=== PATIENT | female | born 1975 | race African-American/Black ===

== ENCOUNTER 2016-10-05 17:02 | Emergency (ER) | payer MEDICARE, OTHER | END 2016-10-05 19:30 | disposition home or self-care (01) | LOC: ER1 17:02 | DX: J11.1 Influenza due to unidentified influenza virus with other respiratory manifestations (principal); F17.210 Nicotine dependence, cigarettes, uncomplicated; Z88.8 Allergy status to other drugs, medicaments and biological substances | CPT/HCPCS: 87081; 87880; 99283 ==